=== PATIENT | male | born 1965 | race Two or more races ===

== ENCOUNTER 2022-11-27 05:12 | Day surgery (SDC) | payer OTHER ==
[~2022-11-27 05:12] MED LIST: PROSCAR5 MG PO; TAMS0.4C PO
== END 2022-11-27 14:55 | disposition home or self-care (01) ==
LOC: CIR.AMB 05:12
PROVIDERS: ATTEND Urology
DX: C61 Malignant neoplasm of prostate (principal); Z20.822 Contact with and (suspected) exposure to COVID-19; Z88.6 Allergy status to analgesic agent; Z86.16 Personal history of COVID-19

== ENCOUNTER → 2023-03-03 | Outpatient (CLI) | payer OTHER | END | disposition home or self-care (01) | LOC: LAB 11:45 | PROVIDERS: ATTEND Urology | DX: N39.0 Urinary tract infection, site not specified (principal) ==

== ENCOUNTER 2025-09-06 10:00 | Day surgery (SDC) | payer OTHER ==
[2025-09-06] MEDS ORDERED: DIPHENHYDRAMINE HCL 50 MG/ML VIAL 1ML IV ONE (13:30)
[2025-09-06] MEDS ORDERED: MIDAZOLAM HCL 2 MG/2 ML VIAL IV ONE (13:30)
[2025-09-06] MEDS ORDERED: fentaNYL CITRATE 50 MCG/ML AMPUL IV PUSH ONE (13:30)
== END 2025-09-06 14:20 | disposition home or self-care (01) ==
LOC: AMB-ENDOS 10:00
PROVIDERS: ATTEND Colon & Rectal Surgery
DX: K58.9 Irritable bowel syndrome, unspecified (principal); K63.5 Polyp of colon; Z88.0 Allergy status to penicillin